=== PATIENT | male | born 1970 | race Caucasian/White ===

== ENCOUNTER 2020-03-18 07:44 | Emergency (ER) | payer OTHER ==
[2020-03-18] MEDS ORDERED: Sodium Chloride 0.9% 10 ML Syringe FLUSH PRN (08:05)
[2020-03-18] MEDS ORDERED: Ondansetron 4 MG/2 ML SDV IVPUSH ONE (08:05)
[2020-03-18] MEDS ORDERED: Ketorolac 30 MG/ML SDV IVPUSH ONE (08:06)
[2020-03-18] MEDS ORDERED: HYDROmorphone 0.5 MG/0.5 ML Syringe IVPUSH ONE ×2 (08:06→09:42)
--- NOTE | 2020-03-18 08:12 | EDM.PDOC ---
ED HPI GENERAL MEDICAL PROBLEM - General Chief Complaint: Flank Pain Stated Complaint: LOW ABD AND BACK PAIN Time Seen by Provider: 03/18/20 08:02 Source of Information: Reports: Patient, Family History Limitations: Reports: No Limitations - History of Present Illness INITIAL COMMENTS - FREE TEXT/NARRATIVE: The patient presents with right flank pain. This started at about 6:05am. The patient has nausea but no vomiting. He has no history of kidney stones. He has no fever but he had chills. He has no cough, chest pain or shortness of breath. He has no dysuria or hematuria. He still has his appendix and gallbladder. Onset: Sudden Duration: Hour(s): Location: Reports: Abdomen, Back Quality: Reports: Sharp Severity: Severe Improves with: Reports: None Worsens with: Reports: None Associated Symptoms: Reports: Fever/Chills, Nausea/Vomiting. Denies: Chest Pain, Cough, Headaches, Shortness of Breath Right Abdomen Pain Score (Numeric/FACES): 6 - Related Data Allergies Allergy/AdvReac Type Severity Reaction Status Date / Time No Known Allergies Allergy Verified 03/18/20 07:58 Home Meds: Home Meds Aspirin 81 mg PO DAILY 03/18/20 [History] Cholecalciferol (Vitamin D3) [Vitamin D3] 2,000 unit PO DAILY 03/18/20 [History] Hydrocodone/Acetaminophen [Hydrocodone-Acetamin 5-325 mg] 1 - 2 each PO Q6HR PRN #20 tablet 03/18/20 [Rx] Losartan [Cozaar] 100 mg PO DAILY 03/18/20 [History] Metoprolol Tartrate [Lopressor] 50 mg PO DAILY 03/18/20 [History] Multivitamin 1 tab PO DAILY 03/18/20 [History] Semaglutide [Ozempic] 1 injection SQ WEEKLY 03/18/20 [History] Tamsulosin HCl [Flomax] 0.4 mg PO DAILY #7 cap.er.24h 03/18/20 [Rx] metFORMIN [Glucophage] 100 mg PO BID 03/18/20 [History] Past Medical History - Past Health History Medical/Surgical History: Denies Medical/Surgical History Social & Family History - Tobacco Use Tobacco Use Status *Q: Never Tobacco User ED ROS GENERAL - Review of Systems Review Of Systems: See Below Constitutional: Reports: Chills. Denies: Fever HEENT: Reports: No Symptoms Respiratory: Reports: No Symptoms Cardiovascular: Reports: No Symptoms Endocrine: Reports: No Symptoms GI/Abdominal: Reports: Abdominal Pain, Nausea. Denies: Diarrhea, Vomiting : Reports: Flank Pain (right). Denies: Dysuria, Hematuria ED EXAM, GI/ABD - Physical Exam Exam: See Below Exam Limited By: No Limitations General Appearance: Alert, No Apparent Distress Ears: Normal External Exam Nose: Normal Inspection Head: Atraumatic, Normocephalic Neck: Normal Inspection Respiratory/Chest: No Respiratory Distress, Lungs Clear, Normal Breath Sounds Cardiovascular: Regular Rate, Rhythm, No Edema, No Murmur GI/Abdominal Exam: Soft, No Organomegaly, No Mass, Tender (Mild tenderness to the right lower abdomen) Back Exam: CVA Tenderness (R) Neurological: Alert, Oriented, No Motor/Sensory Deficits Course - Vital Signs Last Recorded V/S: Last Vital Signs Temp 95.6 F L 03/18/20 07:55 Pulse 85 03/18/20 07:55 Resp 16 03/18/20 07:55 BP 210/120 H 03/18/20 07:55 Pulse Ox 100 03/18/20 07:55 - Orders/Labs/Meds Orders: Active Orders 24 hr Category Date Time Status Peripheral IV Care [RC] . DIRECTED Care 03/18/20 08:06 Active Sodium Chloride 0.9% [Normal Saline] 1,000 ml Med 03/18/20 08:15 Active IV ASDIRECTED Sodium Chloride 0.9% [Saline Flush] Med 03/18/20 08:05 Active 10 ml FLUSH ASDIRECTED PRN Tamsulosin [Flomax] Med 03/18/20 09:51 Once 0.4 mg PO ONETIME ONE ED Antiemetic Medication Reflex [OM.PC] Stat Oth 03/18/20 08:05 Ordered Peripheral IV Insertion Adult [OM.PC] Stat Oth 03/18/20 08:05 Ordered Medication Orders Sodium Chloride (Normal Saline) 1,000 mls @ 125 mls/hr IV ASDIRECTED BOBBI Last Admin: 03/18/20 08:58 Dose: 125 mls/hr Documented by: ALVARO Sodium Chloride (Saline Flush) 10 ml FLUSH ASDIRECTED PRN PRN Reason: Keep Vein Open Last Admin: 03/18/20 08:57 Dose: 10 ml Documented by: ALVARO Labs: Laboratory Tests 03/18/20 03/18/20 03/18/20 Range/Units 08:25 08:25 09:05 WBC 9.63 H (4.23-9.07) K/mm3 RBC 5.29 (4.63-6.08) M/mm3 Hgb 15.7 (13.7-17.5) gm/dl Hct 44.8 (40.1-51.0) % MCV 84.7 (79.0-92.2) fl MCH 29.7 (25.7-32.2) pg MCHC 35.0 (32.2-35.5) g/dl RDW Std Deviation 40.9 (35.1-43.9) fL Plt Count 183 (163-337) K/mm3 MPV 8.8 L (9.4-12.3) fl Neut % (Auto) 83.1 H (34.0-67.9) % Lymph % (Auto) 9.0 L (21.8-53.1) % [place] % (Auto) 6.6 (5.3-12.2) % Eos % (Auto) 0.6 L (0.8-7.0) Baso % (Auto) 0.3 (0.1-1.2) % Neut # (Auto) 7.99 H (1.78-5.38) K/mm3 Lymph # (Auto) 0.87 L (1.32-3.57) K/mm3 [place] # (Auto) 0.64 (0.30-0.82) K/mm3 Eos # (Auto) 0.06 (0.04-0.54) K/mm3 Baso # (Auto) 0.03 (0.01-0.08) K/mm3 Sodium 141 (136-145) mEq/L Potassium 3.8 (3.5-5.1) mEq/L Chloride 102 (98-107) mEq/L Carbon Dioxide 28 (21-32) mEq/L Anion Gap 14.8 (5-15) BUN 20 H (7-18) mg/dL Creatinine 1.2 (0.7-1.3) mg/dL Est Cr Clr Drug Dosing 80.18 mL/min Estimated GFR (MDRD) > 60 (>60) mL/min BUN/Creatinine Ratio 16.7 (14-18) Glucose 284 H (74-106) mg/dL Calcium 9.2 (8.5-10.1) mg/dL Total Bilirubin 0.6 (0.2-1.0) mg/dL AST 29 (15-37) U/L ALT 59 (16-63) U/L Alkaline Phosphatase 75 (46-116) U/L Total Protein 7.9 (6.4-8.2) g/dl Albumin 4.4 (3.4-5.0) g/dl Globulin 3.5 gm/dL Albumin/Globulin Ratio 1.3 (1-2) Lipase 231 (73-393) U/L Urine Color Yellow (Yellow) Urine Appearance Clear (Clear) Urine pH 7.0 (5.0-8.0) Ur Specific [place] 1.020 (1.005-1.030) Urine Protein 1+ H (Negative) Urine Glucose (UA) 2+ H (Negative) Urine Ketones Negative (Negative) Urine Occult Blood Trace-lysed H (Negative) Urine Nitrite Negative (Negative) Urine Bilirubin Negative (Negative) Urine Urobilinogen 0.2 (0.2-1.0) Ur Leukocyte Esterase Negative (Negative) Urine RBC 0-5 (0-5) /hpf Urine WBC 0-5 (0-5) /hpf Ur Epithelial Cells 0-5 (0-5) /hpf Urine Bacteria Not seen (FEW) /hpf Urine Mucus Not seen (FEW) /hpf Meds: Medications Generic Name Dose Route Start Last Admin Trade Name Freq PRN Reason Stop Dose Admin Sodium Chloride 1,000 mls @ 125 mls/hr 03/18/20 08:15 03/18/20 08:58 Normal Saline IV 125 mls/hr ASDIRECTED BOBBI Administration Sodium Chloride 10 ml 03/18/20 08:05 03/18/20 08:57 Saline Flush FLUSH 10 ml ASDIRECTED PRN Administration Keep Vein Open Discontinued Medications Generic Name Dose Route Start Last Admin Trade Name Freq PRN Reason Stop Dose Admin Hydromorphone HCl 0.5 mg 03/18/20 08:06 03/18/20 08:56 Dilaudid IVPUSH 03/18/20 08:07 0.5 mg ONETIME ONE Administration Hydromorphone HCl 0.5 mg 03/18/20 09:42 03/18/20 09:51 Dilaudid IVPUSH 03/18/20 09:43 0.5 mg ONETIME ONE Administration Ketorolac Tromethamine 30 mg 03/18/20 08:06 03/18/20 08:56 Toradol IVPUSH 03/18/20 08:07 30 mg ONETIME ONE Administration Ondansetron HCl 4 mg 03/18/20 08:05 03/18/20 08:57 Zofran IVPUSH 03/18/20 08:06 4 mg ONETIME ONE Administration - Re-Assessments/Exams Free Text/Narrative Re-Assessment/Exam: 03/18/20 08:11 I ordered an IV NS at 125mL/hr, zofran 4mg IV, toradol 30mg IV, dilaudid 0.5mg IV, labs, UA and a CT of his abdomen and pelvis without contrast to look for a renal stone. 03/18/20 09:51 His CBC and CMP look good. His UA shows some blood but no UTI. His CT shows small nonobstructing calculi within both kidneys. 3.7mm stone either within the bladder or within the distal right UVJ located within the bladder. Please correlate with the patient's symptoms. Diffuse fatty infiltration within the liver. Other findings believed to be chronic. His pain was coming back so I ordered dilaudid 0.5mg IV and flomax 0.4mg PO. Departure - Departure Time of Disposition: 09:55 Disposition: Home, Self-Care 01 Condition: Good Clinical Impression: Kidney stone on right side, Ureteral colic, Ureteral calculus, right - Discharge Information *PRESCRIPTION DRUG MONITORING PROGRAM REVIEWED*: Not Applicable *COPY OF PRESCRIPTION DRUG MONITORING REPORT IN PATIENT NILESH: Not Applicable Prescriptions: Tamsulosin HCl [Flomax] 0.4 mg PO DAILY #7 cap.er.24h Hydrocodone/Acetaminophen [Hydrocodone-Acetamin 5-325 mg] 1 - 2 each PO Q6HR PRN #20 tablet PRN Reason: Pain Referrals: Thaddeus Cortez Jr, MD [Primary Care Provider] - 1 Week Forms: ED Department Discharge Additional Instructions: Drink plenty of fluids. Take the flomax daily until you pass the stone. Take tylenol or motrin for pain. If that does not help, try the hydrocodone. Please return if you are worse. Sepsis Event Note (ED) - Evaluation Sepsis Screening Result: No Definite Risk - Focused Exam Vital Signs: Vital Signs Temp Pulse Resp BP Pulse Ox 03/18/20 07:55 95.6 F L 85 16 210/120 H 100 - My Orders Last 24 Hours: My Active Orders 03/18/20 08:05 Sodium Chloride 0.9% [Saline Flush] 10 ml FLUSH ASDIRECTED PRN ED Antiemetic Medication Reflex [OM.PC] Stat Peripheral IV Insertion Adult [OM.PC] Stat 03/18/20 08:06 Peripheral IV Care [RC] . DIRECTED 03/18/20 08:15 Sodium Chloride 0.9% [Normal Saline] 1,000 ml IV ASDIRECTED 03/18/20 09:51 Tamsulosin [Flomax] 0.4 mg PO ONETIME ONE - Assessment/Plan Last 24 Hours: My Active Orders 03/18/20 08:05 Sodium Chloride 0.9% [Saline Flush] 10 ml FLUSH ASDIRECTED PRN ED Antiemetic Medication Reflex [OM.PC] Stat Peripheral IV Insertion Adult [OM.PC] Stat 03/18/20 08:06 Peripheral IV Care [RC] . DIRECTED 03/18/20 08:15 Sodium Chloride 0.9% [Normal Saline] 1,000 ml IV ASDIRECTED 03/18/20 09:51 Tamsulosin [Flomax] 0.4 mg PO ONETIME ONE
[2020-03-18] MEDS ORDERED: Sodium Chloride 0.9% 1,000 ML IV SCH (08:15)
--- NOTE | 2020-03-18 09:24 | CT ---
CT abdomen and pelvis Technique: Multiple axial sections were obtained from above the dome of the diaphragm inferiorly through the pubic symphysis. Intravenous and oral contrast not utilized. Reconstructed coronal and sagittal images were obtained. Comparison: No prior abdominal imaging is available. Findings: Visualized lung bases show nothing acute. Liver shows diffuse fatty infiltration. Spleen size is within normal limits. Adrenal glands show no nodule. Pancreas is within normal limits. Gallbladder contains no calcified gallstones. Two small nonobstructing calculi are seen within the right kidney as well as a single calculus within the left kidney. These measure in the 2-3 mm range. Right kidney shows a small cyst. Small stone is noted within the bladder which is either free floating within the bladder or within the intraluminal ureteral orifice on the right side. There is a slightly prominent right ureter with inflammatory change being seen compatible with the obstruction. Left ureter shows no abnormal obstruction. The stone within the bladder or ureteral orifice measures about 3.7 mm. Fat-containing umbilical hernia is noted. Aorta shows no aneurysm. No retroperitoneal adenopathy or mesenteric abnormalities are seen. No pelvic mass or adenopathy is identified. Bone window settings were reviewed which show mild scattered degenerative change within the spine. No acute osseous finding is seen. Impression: 1. Small nonobstructing calculi within both kidneys. 2. 3.7 mm stone either within the bladder or within the distal right UVJ located within the bladder. Please correlate with the patient's symptoms. 3. Diffuse fatty infiltration within the liver. 4. Other findings believed to be chronic as noted above. Diagnostic code #3
[2020-03-18] MEDS ORDERED: Tamsulosin 0.4 MG Cap.ER PO ONE (09:51)
== END 2020-03-18 10:19 | disposition home or self-care (01) ==
LOC: JD.ED 07:44
DX: N20.2 Calculus of kidney with calculus of ureter (principal); Z79.82 Long term (current) use of aspirin; Z79.84 Long term (current) use of oral hypoglycemic drugs; Z79.899 Other long term (current) drug therapy
CPT/HCPCS: 36415; 74176; 80053; 81001; 83690; 85025; 96374; 96375; 96376; 99284; A9270; J1170; J1885; J2405; J7030

== ENCOUNTER 2021-02-12 09:58 | Day surgery (SDC) | payer BC, OTHER ==
[~2021-02-12 09:58] MED LIST: Lactated Ringers 1,000 ML IV SCH; Lidocaine 1%/Sod Bicarbonate in NS 8.4% 1 ML Syringe IDERM PRN; Sodium Chloride 0.9% 10 ML Syringe FLUSH SCH
--- NOTE | 2021-02-12 10:31 | PCM.PREANE ---
Preanesthetic Assessment - Procedure Proposed Procedure: screeing colonoscopy - Anesthesia/Transfusion/Family Hx Anesthesia History: Prior Anesthesia Without Reaction Family History of Anesthesia Reaction: No Transfusion History: No Prior Transfusion(s) - Review of Systems General: No Symptoms Pulmonary: No Symptoms Cardiovascular: No Symptoms Gastrointestinal: No Symptoms Neurological: No Symptoms Other: Reports: Diabetes - Physical Assessment NPO Status Date: 02/12/21 NPO Status Time: 04:00 (prep) Vital Signs: Last Vital Signs Temp 98.1 F 02/12/21 09:45 Pulse 88 02/12/21 09:45 Resp 16 02/12/21 09:45 BP 167/93 H 02/12/21 09:45 Pulse Ox 96 02/12/21 09:45 Height: 5 ft 10 in Weight: 127 kg ASA Class: 3 Mental Status: Alert & Oriented x3 Airway Class: Mallampati = 3 Dentition: Reports: Normal Dentition Thyro-Mental Finger Breadths: 3 Mouth Opening Finger Breadths: 3 ROM/Head Extension: Full Lungs: Clear to Auscultation, Normal Respiratory Effort Cardiovascular: Regular Rate, Regular Rhythm - Lab Values: Laboratory Last Values POC Glucose 144 mg/dL (70-99) H 02/12/21 10:00 - Allergies Allergies/Adverse Reactions: Allergies Allergy/AdvReac Type Severity Reaction Status Date / Time No Known Allergies Allergy Verified 03/18/20 07:58 - Blood Blood Available: No - Acknowledgements Anesthesia Type Planned: MAC Pt an Appropriate Candidate for the Planned Anesthesia: Yes Alternatives and Risks of Anesthesia Discussed w Pt/Guardian: Yes Pt/Guardian Understands and Agrees with Anesthesia Plan: Yes PreAnesthesia Questionnaire - Past Health History Medical/Surgical History: Denies Medical/Surgical History Cardiovascular History: Reports: Hypertension Respiratory History: Reports: None Gastrointestinal History: Reports: None Genitourinary History: Reports: Renal Calculus (in the past about 1 year ago) Musculoskeletal History: Reports: None Psychiatric History: Reports: None Endocrine/Metabolic History: Reports: Obesity/BMI 30+ Oncologic (Cancer) History: Reports: None - Past Surgical History HEENT Surgical History: Reports: Oral Surgery - SUBSTANCE USE Tobacco Use Status *Q: Never Tobacco User Tobacco Use Within Last Twelve Months: Snuff/Dip (quit 2002) Second Hand Smoke Exposure: No Days Per Week of Alcohol Use: 1 Recreational Drug Use History: No - HOME MEDS Home Medications: Home Meds Aspirin 81 mg PO DAILY 03/18/20 [History] Cholecalciferol (Vitamin D3) [Vitamin D3] 2,000 unit PO DAILY 03/18/20 [History] Hydrocodone/Acetaminophen [HYDROcodone-Acetaminophen 5-325 MG] 1 - 2 each PO Q6HR PRN #20 tablet 03/18/20 [Rx] Losartan [Cozaar] 100 mg PO DAILY 03/18/20 [History] Metoprolol Tartrate [Lopressor] 50 mg PO DAILY 03/18/20 [History] Multivitamin 1 tab PO DAILY 03/18/20 [History] Semaglutide [Ozempic] 1 injection SQ WEEKLY 03/18/20 [History] Tamsulosin HCl [Flomax] 0.4 mg PO DAILY #7 cap.er.24h 03/18/20 [Rx] metFORMIN [Glucophage] 100 mg PO BID 03/18/20 [History] Chlorthalidone 12.5 mg PO DAILY 02/12/21 [History] - CURRENT (IN HOUSE) MEDS Current Meds: Current Medications Lactated Ringer's (Ringers, Lactated) 1,000 mls @ 125 mls/hr IV ASDIRECTED [facility] Stop: 02/12/21 23:00 Last Admin: 02/12/21 10:08 Dose: 125 mls/hr Documented by: Lidocaine/Sodium Bicarbonate (Lidocaine 1%/Sod Bicarbonate In Ns 8.4% 1 Ml Syringe) 0.25 ml IDERM ONETIME PRN PRN Reason: Prior to IV Start Stop: 02/12/21 18:00 Sodium Chloride (Sodium Chloride 0.9% 10 Ml Syringe) 10 ml FLUSH 0900,2100 [facility] Stop: 02/12/21 18:00
[2021-02-12] MEDS ORDERED: Propofol 200 MG/20 ML SDV ONE (11:25)
[2021-02-12] MEDS ORDERED: fentaNYL 100 MCG/2 ML SDV ONE (11:26)
--- NOTE | 2021-02-12 12:22 | PCM.PRNOTE ---
- Free Text/Narrative Note: Date: 02/12/2021 Procedure: screening colonoscopy History: no prior screening, grandfather was diagnosed with colon cancer in old age Endoscopist: Jewel Jolley MD Findings: prep was good, cecum reached, no polyps or other pathology identified. Detailed Report: The patient was taken to the endoscopy suite and placed in left lateral decubitus position. Timeout was performed and monitored anesthesia care was initiated. The anus appeared normal and digital rectal exam was unremarkable. The colonoscope was inserted and advanced all the way to the cecum. The appendiceal orifice and ileocecal junction were well visualized. Prep was good. The scope was slowly withdrawn and mucosal surfaces carefully inspected. No polyps were identified. There was no evidence of diverticulosis or significant hemorrhoidal disease. Air was suctioned from the distal colon and rectum prior to withdrawal of the scope. The patient tolerated the procedure well.
--- NOTE | 2021-02-12 12:36 | PCM48HPAN ---
Post Anesthesia Note - EVALUATION WITHIN 48HRS OF ANESTHETIC Vital Signs in Normal Range: Yes Patient Participated in Evaluation: Yes Respiratory Function Stable: Yes Airway Patent: Yes Cardiovascular Function Stable: Yes Hydration Status Stable: Yes Pain Control Satisfactory: Yes Nausea and Vomiting Control Satisfactory: Yes Mental Status Recovered: Yes Vital Signs: Last Vital Signs Temp 97.4 F 02/12/21 12:19 Pulse 68 02/12/21 12:30 Resp 16 02/12/21 12:30 BP 105/73 02/12/21 12:30 Pulse Ox 99 02/12/21 12:34
== END 2021-02-12 12:58 | disposition home or self-care (01) ==
LOC: JD.SDS 09:58
PROVIDERS: ATTEND Surgery
DX: Z12.11 Encounter for screening for malignant neoplasm of colon (principal); Z80.0 Family history of malignant neoplasm of digestive organs; I10 Essential (primary) hypertension; E11.9 Type 2 diabetes mellitus without complications; K42.9 Umbilical hernia without obstruction or gangrene; E66.9 Obesity, unspecified; Z79.82 Long term (current) use of aspirin; Z79.899 Other long term (current) drug therapy; Z98.890 Other specified postprocedural states; Z68.41 Body mass index [BMI] 40.0-44.9, adult
CPT/HCPCS: 45378; 82947; J2704; J3010; J7120; 00812